=== PATIENT | female | born 1990 | race Caucasian/White ===

== ENCOUNTER → 2016-09-25 | Outpatient (CLI) | payer BC, OTHER ==
[~2016-09-25] MED LIST: AMPH20TA2 PO; DULO60CA44 PO; TRAZ1TAB5 PO
--- NOTE | 2016-09-25 15:33 | DIAGNOSTIC IMAGING REPORT ---
THYROID ULTRASOUND CLINICAL HISTORY: Follow up thyroid nodule. COMPARISON STUDY: Thyroid SCLEROSIS November 04, 2009. TECHNIQUE: Sonography of the thyroid gland was performed. FINDINGS: The right thyroid lobe measures 4.5 x 1.3 x 1.6 cm and the left thyroid lobe measures 5 x 2.1 x 2.3 cm. Note is made of an echogenic nodule within the mid to lower pole of the left lobe which measures 3.1 x 1.9 x 2 cm. This nodule measured 2.4 x 1.5 x 1.7 cm on exam of November 04, 2009. No additional thyroid nodules are identified. IMPRESSION: Mild increase in size of the left lobe thyroid nodule since ultrasound of November 04, 2009. This nodule does not have suspicious imaging characteristics but is indeterminate and correlation with prior biopsy results is recommended. If no previous biopsy, ultrasound-guided fine needle aspiration might be considered. Electronically signed by: Lavelle Barnard M.D. 09/25/2016 3:32 PM Dictated Date/Time: 09/25/2016 3:29 PM
== END | disposition home or self-care (01) ==
LOC: C.ULTRBC 14:58
PROVIDERS: ATTEND Family Medicine
DX: E04.1 Nontoxic single thyroid nodule (principal)

== ENCOUNTER → 2016-10-12 | Outpatient (CLI) | payer BC ==
--- NOTE | 2016-10-12 11:12 | DIAGNOSTIC IMAGING REPORT ---
GUIDANCE NEEDLE PLACEMENT CLINICAL HISTORY: 26 years-old Female presenting with THYROID NODULE. TECHNIQUE: Real-time grayscale and limited color Doppler ultrasound imaging of the thyroid and base of the neck was performed for ultrasound-guided fine-needle aspiration. COMPARISON: 09/25/2016. PROCEDURE: The risks, benefits, and alternatives to the procedure were discussed with the patient. Written informed consent was obtained. The patient was placed supine in ultrasound, and the 3.1 cm nodule in the left lobe of the thyroid was localized by ultrasound and selected for fine needle aspiration. The left neck was prepped and draped in the usual sterile fashion. The nodule was aspirated under ultrasound guidance with 3 passes utilizing 25-gauge needles. Specimens were reviewed by the pathologist at the time of biopsy and were deemed adequate for diagnosis. The patient tolerated the procedure well and left the department in satisfactory condition. IMPRESSION: Successful fine-needle aspiration of the left thyroid nodule as above. Electronically signed by: Prateek Vail M.D. 10/12/2016 11:11 AM Dictated Date/Time: 10/12/2016 11:10 AM
== END | disposition home or self-care (01) ==
LOC: C.ULTR 09:55
PROVIDERS: ATTEND Family Medicine
DX: E04.1 Nontoxic single thyroid nodule (principal)